=== PATIENT | female | born 1950 | race Caucasian/White ===

== ENCOUNTER → 2016-08-01 | Outpatient (CLI) | payer BC ==
[~2016-08-01] MED LIST: ANAG0.5C6 PO; ASPI81TA28 PO; BUTA1CAP17 PO; CALCTAB5 PO; CHOL100010 PO; DIPH25CA65 PO; HYDR500C3 PO; LEVO112T4 PO; NXM/40 PO; RIZA10TA18 PO
== END | disposition home or self-care (01) ==
LOC: C.LAB1850 17:09
PROVIDERS: ATTEND Internal Medicine
DX: E03.9 Hypothyroidism, unspecified (principal)

== ENCOUNTER → 2016-12-13 | Outpatient (CLI) | payer BC ==
--- NOTE | 2016-12-13 16:18 | MAMMOGRAPHY REPORT ---
BILATERAL DIGITAL SCREENING MAMMOGRAM WITH CAD: 12/13/2016 CLINICAL HISTORY: Routine screening. Patient has no complaints. TECHNIQUE: Current study was also evaluated with a Computer Aided Detection (CAD) system. Bilateral CC and MLO views were obtained. COMPARISON: Comparison is made to exams dated: 09/29/2015 mammogram, 08/02/2014 mammogram, 07/30/2013 m ammogram, 05/25/2011 mammogram, and 05/24/2010 mammogram - [facility]. BREAST COMPOSITION: The tissue of both breasts is almost entirely fatty. FINDINGS: There is a newly visualized 5 mm mass within the right 12:00 breast, for which spot clayton enmanuel tomosynthesis views and possible breast ultrasound are recommended for further evaluation. The remainder of both breasts are stable compared to prior exams, without suspicious masses, calcific ations, or areas of architectural distortion noted. IMPRESSION: ACR BI-RADS CATEGORY 0: INCOMPLETE EVALUATION: NEED ADDITIONAL IMAGING EVALUATION Right breast mass, for which additional imaging evaluation is recommended. The patient will be cotton d to schedule an appointment. Approximately 10% of breast cancers are not detected with mammography. A negative mammographic report should not delay biopsy if a clinically suggestive mass is present. Genna Horton M.D. ah/:12/13/2016 15:29:41 Oiling Machine Operator: Pat OLIVA)(), [facility] letter sent: Addl Imaging 0 BI-RADS Code: ACR BI-RADS Category 0: Incomplete Evaluation: Need Additional Imaging Evaluation
== END | disposition home or self-care (01) ==
LOC: C.MAMM 12:56
PROVIDERS: ATTEND Obstetrics & Gynecology
DX: Z12.31 Encounter for screening mammogram for malignant neoplasm of breast (principal); N63 Unspecified lump in breast

== ENCOUNTER → 2016-12-19 | Outpatient (CLI) | payer BC ==
--- NOTE | 2016-12-19 13:14 | MAMMOGRAPHY REPORT ---
UNILATERAL RIGHT DIGITAL DIAGNOSTIC MAMMOGRAM TOMOSYNTHESIS AND TARGETED RIGHT ULTRASOUND: 12/19/2016 CLINICAL HISTORY: Callback from screening mammogram for right breast mass. TECHNIQUE: Breast tomosynthesis in addition to standard 2D mammography was performed. Spot compress ion right CC and MLO 2-D and tomosynthesis images were obtained. COMPARISON: Comparison is made to exams dated: 12/13/2016 mammogram, 09/29/2015 mammogram, 08/02/2014 ma mmogram, 07/30/2013 mammogram, 05/25/2011 mammogram, and 05/24/2010 mammogram - [facility]. BREAST COMPOSITION: The tissue of the right breast is almost entirely fatty. FINDINGS: Spot compression views demonstrate a persistent low-density round circumscribed 5 mm mass within the right 12:00 breast. Targeted ultrasound was performed of the right 12:00 breast in the re gion of the mammographic mass. In the right breast at 12:00, 2 cm from the nipple, there is an oval circumscribed anechoic mass which measures 4 x 2 x 4 mm. This corresponds with the mammographic mass and is consistent with a benign cyst. No suspicious solid masses are evident. IMPRESSION: ACR BI-RADS CATEGORY 2: BENIGN, TARGETED ULTRASOUND ACR BI-RADS CATEGORY 2: BENIGN Benign 4 mm cyst in the right breast at 12:00, which corresponds with the mammographic mass. There i s no mammographic or targeted sonographic evidence of malignancy. A 1 year screening mammogram is rec ommended. The patient has been verbally notified of the results. Approximately 10% of breast cancers are not detected with mammography. A negative mammographic report should not delay biopsy if a clinically suggestive mass is present. Genna Horton M.D. /:12/19/2016 10:12:02 Licensing Director: Rosalinda OLIVA)(Lisandra), [facility] letter sent: Normal 1/2 BI-RADS Code: ACR BI-RADS Category 2: Benign Ultrasound BI-RADS: ACR BI-RADS Category 2: Benign
== END | disposition home or self-care (01) ==
LOC: C.MAMM 09:38
PROVIDERS: ATTEND Obstetrics & Gynecology
DX: R92.2 Inconclusive mammogram (principal); N60.01 Solitary cyst of right breast

== ENCOUNTER → 2017-02-14 | Outpatient (CLI) | payer BC ==
[2017-02-14 12:06] LABS: BASO % 0.3 %; BASO ABS # 0.03 K/uL (0-0.2); COMPLETE YES; EOS % 0.8 %; HEMATOCRIT 43.8 % (37-47); IG% 0.2 %; LYMPH % 26.3 %; LYMPH ABS # 2.32 K/uL (1.2-3.4); MEAN CELL VOLUME 98.4 fL (80-100); MEAN CORPUSCULAR HGB CONC 33.6 g/dl (32-36); MEAN PLATELET VOLUME 10.7 fL (7.4-10.4); MONO % 7.2 %; NEUT % 65.2 %; PLATELET COUNT 368 K/uL (130-400); RED BLOOD COUNT 4.45 M/uL (4.2-5.4); WHITE BLOOD COUNT 8.81 K/uL (4.8-10.8)
[2017-02-14 12:19] LABS: ALT/SGPT 56 U/L (12-78); BLOOD UREA NITROGEN 17 mg/dl (7-18); BUN/CREATININE RATIO 21.6 (10-20); CALCIUM 9.2 mg/dl (8.5-10.1); CARBON DIOXIDE 27 mmol/L (21-32); CHLORIDE 107 mmol/L (98-107); CHOLESTEROL 196 mg/dl (0-200); GLUCOSE 101 mg/dl (70-99); POTASSIUM 4.1 mmol/L (3.5-5.1); SODIUM 138 mmol/L (136-145)
[2017-02-14 12:29] LABS: ALB/GLOB RATIO 1.2 (0.9-2); ALKALINE PHOSPHATASE 127 U/L (45-117); AST/SGOT 22 U/L (15-37); HDL CHOLESTEROL 49 mg/dl; LDL CHOLESTEROL CALCULATED 121 mg/dl; TRIGLYCERIDES 128 mg/dl (0-150); VERY LOW DENSITY LIPOPROT CALC 26 mg/dl
== END | disposition home or self-care (01) ==
LOC: C.LAB1850 09:59
PROVIDERS: ATTEND Internal Medicine
DX: C94.6 Myelodysplastic disease, not elsewhere classified (principal); E03.9 Hypothyroidism, unspecified; E78.00 Pure hypercholesterolemia, unspecified; E55.9 Vitamin D deficiency, unspecified

== ENCOUNTER → 2017-02-15 | Outpatient (CLI) | payer BC ==
[2017-02-15 15:42] LABS: URINE APPEARANCE CLEAR (CLEAR); URINE BILIRUBIN NEG (NEG); URINE COLOR YELLOW; URINE NITRITE NEG (NEG); URINE SPECIFIC GRAVITY 1.017 (1.000-1.030); UROBILINOGEN NEG (NEG)
[2017-02-15 15:46] LABS: MANUAL MICROSCOPIC REQUIRED? NO; REVIEW REQ? NO
== END | disposition home or self-care (01) ==
LOC: C.LAB1850 14:24
PROVIDERS: ATTEND Internal Medicine
DX: R30.0 Dysuria (principal)

== ENCOUNTER → 2017-02-20 | Outpatient (CLI) | payer BC ==
--- NOTE | 2017-02-20 12:01 | DIAGNOSTIC IMAGING REPORT ---
RENAL ULTRASOUND CLINICAL HISTORY: Dysuria. COMPARISON STUDY: CT of the abdomen July 18, 2010 and right upper corner ultrasound August 10, 2014. TECHNIQUE: Sonography of the kidneys and the urinary bladder was performed. FINDINGS: Incidental note is made of fatty infiltration of the liver. There is no hydronephrosis. The right kidney measures 10.4 x 4.8 x 4.6 cm and the left measures 11.6 x 5.2 x 5.2 cm. There is a 1.1 cm cyst arising from the upper pole of the right kidney. The bladder is unremarkable. Both ureteral jets were identified. IMPRESSION: 1. No hydronephrosis. 2. No urinary calculi identified by sonography. 3. 1.1 cm right renal cyst. 4. Fatty liver. Electronically signed by: Nazario Nickerson M.D. 02/20/2017 11:59 AM Dictated Date/Time: 02/20/2017 11:58 AM
== END | disposition home or self-care (01) ==
LOC: C.ULTR 11:25
PROVIDERS: ATTEND Internal Medicine
DX: R30.0 Dysuria (principal)

== ENCOUNTER → 2017-03-11 | Outpatient (CLI) | payer BC | END | disposition home or self-care (01) | LOC: C.MAMM 10:04 | PROVIDERS: ATTEND Internal Medicine | DX: E55.9 Vitamin D deficiency, unspecified (principal); M85.851 Other specified disorders of bone density and structure, right thigh; M85.852 Other specified disorders of bone density and structure, left thigh ==

== ENCOUNTER → 2017-07-04 | Outpatient (CLI) | payer BC ==
--- NOTE | 2017-07-04 14:01 | DIAGNOSTIC IMAGING REPORT ---
CHEST 2 VIEWS ROUTINE CLINICAL HISTORY: 66 years-old Female presenting with COUGH. TECHNIQUE: PA and lateral views of the chest were obtained. COMPARISON: 09/11/2014. FINDINGS: Cardiomediastinal silhouette normal. Lungs and pleural spaces clear. Osseous structures normal. Cholecystectomy clips noted. IMPRESSION: 1. No acute cardiopulmonary disease. Electronically signed by: Joey Coronel M.D. 07/04/2017 2:00 PM Dictated Date/Time: 07/04/2017 1:59 PM
== END | disposition home or self-care (01) ==
LOC: C.RAD1850 13:51
PROVIDERS: ATTEND Physician Assistant
DX: R05 Cough (principal)

== ENCOUNTER → 2017-11-22 | Outpatient (CLI) | payer BC ==
--- NOTE | 2017-11-22 16:20 | DIAGNOSTIC IMAGING REPORT ---
CERVICAL SPINE 3 VIEWS HISTORY: R20.0 Left arm numbness COMPARISON: Cervical spine MRI 02/25/2009. FINDINGS: The cervical spine is visualized from C1 through the superior endplate of T1. There is no fracture. No subluxation. Mild disc space narrowing and endplate osteophytes at C5-C6 and C6-C7. This is not significantly changed. Straightening of the cervical spine. 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 Prevertebral soft tissues and the atlantodens interval are intact. IMPRESSION: No fracture or subluxation within the cervical spine. Degenerative changes as described above. Electronically signed by: Cristian Nguyen M.D. 11/22/2017 4:19 PM Dictated Date/Time: 11/22/2017 4:16 PM
== END | disposition home or self-care (01) ==
LOC: C.RAD1850 15:55
PROVIDERS: ATTEND Physician Assistant
DX: R20.0 Anesthesia of skin (principal)

== ENCOUNTER → 2018-03-04 | Outpatient (CLI) | payer BC ==
[~2018-03-04] MED LIST changes: -ANAG0.5C6 PO; -BUTA1CAP17 PO; +CALC-393 PO; -CALCTAB5 PO; -CHOL100010 PO; +CHOL200010 PO; +FRCT/ PO; +MULT-506 PO; -RIZA10TA18 PO; +RIZA10TA19 PO
== END | disposition home or self-care (01) ==
LOC: C.CCL 10:48
PROVIDERS: ATTEND Internal Medicine
DX: E03.9 Hypothyroidism, unspecified (principal); G43.909 Migraine, unspecified, not intractable, without status migrainosus; E78.00 Pure hypercholesterolemia, unspecified